=== PATIENT | male | born 1980 | race African-American/Black ===

== ENCOUNTER 2019-06-15 10:48 | Outpatient (CLI) | payer BC, SELFPAY ==
--- NOTE | ~2019-06-15 | MR_ITS ---
EXAMINATION: MR knee LT wo con DATE: 06/15/2019 12:04 INDICATION: Left knee pain. ACL tear. TECHNIQUE: Magnetic resonance imaging (MRI) of the left knee was performed without intravenous contra st. Sequences included coronal PD-weighted FSE, coronal PD-weighted FS FSE, sagittal T2-weighted FSE , sagittal PD-weighted FS FSE and axial PD weighted fat saturated FSE. COMPARISON: None. FINDINGS: Medial compartment: Longitudinal horizontal tear extending to the superior articular surface of the posterior horn of the medial meniscus. Trochlear cartilage appears normal however there is a small region of mild subartic ular edema along the anterior weightbearing medial femoral condyle likely related to otherwise occult chondral fissuring. Lateral compartment: Complex tear of the body and posterior horn of the lateral meniscus. Partial-thickness cartilage loss along the lateral tibial plateau with deep fissuring without degenerative subarticular changes along the posterior and medial aspect of the lateral tibial plateau. Additional deep fissuring without cachorro tral reticular changes at the central weightbearing lateral femoral condyle. Patellofemoral compartment: Deep chondral fissure without degenerative subarticular changes at the medial patellar facet. Deep ch ondral fissuring and ulceration involving greater than 50% of the cartilage thickness but without deg enerative subarticular changes at the trochlear groove and medial aspect of the lateral trochlea. Ligaments and tendons: Anterior and posterior cruciate ligaments are normal. The medial collateral ligament and fibular jessica ateral ligament complex are normal. The extensor mechanism is normal. The visualized medial and later al hamstring tendons as well as the iliotibial band are normal. Fluid: Small knee joint effusion at the suprapatellar pouch. No loose osteochondral bodies identified. Moder ate-sized Modi's cyst. Osseous/other: Normal marrow signal aside from the previous noted tiny focus of subarticular edema at the medial fem oral condyle. No fracture or pathologic marrow replacing process. IMPRESSION: 1. Medial and lateral meniscal tears, the latter more extensive and complex. 2. 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 3. Likely reactive small left knee joint effusion. 4. Moderate-sized Modi's cyst. Reviewed, dictated and finalized at location A. IMPRESSION: 1. Medial and lateral meniscal tears, the latter more extensive and complex. 2. Mild tricompartmental osteoarthritis with regions of moderate grade chondrom alacia in the lateral and patellofemoral compartments and small focus of high-g rade chondromalacia along the medial femoral condyle. 3. Likely reactive small left knee joint effusion. 4. Moderate-sized Modi's cyst.
== END 2019-06-15 10:49 | disposition home or self-care (01) ==
DX: S83.282A Other tear of lateral meniscus, current injury, left knee, initial encounter (principal); S83.242A Other tear of medial meniscus, current injury, left knee, initial encounter; M17.12 Unilateral primary osteoarthritis, left knee; M94.262 Chondromalacia, left knee; M25.462 Effusion, left knee; M71.22 Synovial cyst of popliteal space [Baker], left knee
CPT/HCPCS: 73721